=== PATIENT | male | born 1970 | race American Indian/Alaskan Native ===

== ENCOUNTER 2016-06-07 17:45 | Inpatient (IN) | payer OTHER ==
[2016-06-07 20:09] LABS: BASO % 0.4 % (0.0-2.0); EOS # 0.1 K/uL (0.0-0.7); EOS % 0.8 % (0.0-4.0); HEMATOCRIT 43.8 % (35.0-51.0); LYMPH # 2.4 K/uL (1.0-4.3); MEAN CORPUSCULAR HEMOGLOBIN 26.6 pg (27.0-31.0); MEAN CORPUSCULAR HGB CONC 32.9 g/dL (33.0-37.0); MEAN PLATELET VOLUME 7.2 fL (7.2-11.7); MONO # 1.1 K/uL (0.0-0.8); MONO % 8.9 % (0.0-10.0); RED CELL DISTRIBUTION WIDTH 14.2 % (11.5-14.5); WHITE BLOOD COUNT 12.3 K/uL (4.8-10.8)
[2016-06-07 20:16] LABS: RBC URINE 2 /hpf (0-3); URINE BACTERIA RARE (<OCC); URINE BILIRUBIN 1+ (NEGATIVE); URINE BLOOD NEGATIVE (NEGATIVE); URINE COLOR Amber (YELLOW); URINE GLUCOSE (UA) NORMAL (Normal); URINE KETONE TRACE mg/dL (NEGATIVE); URINE LEUKOCYTE ESTERASE NEG Leu/uL (Negative); URINE PROTEIN 1+ mg/dL (NEGATIVE); WBC URINE 4 /hpf (0-5)
[2016-06-07 20:20] LABS: CHLORIDE 92 mmol/L (98-107)
[2016-06-07 20:21] LABS: POTASSIUM 4.2 mmol/L (3.6-5.2); SODIUM 136 mmol/L (132-148)
[2016-06-07 20:23] LABS: GFR AFRICAN-AMERICAN > 60
[2016-06-07 20:24] LABS: ALB/GLOB RATIO 1.3 (1.0-2.1); ALKALINE PHOSPHATASE 72 U/L (38-126); ALT/SGPT 21 U/L (21-72); AST/SGOT 34 U/L (17-59); BILIRUBIN,TOTAL 0.9 mg/dL (0.2-1.3); BLOOD UREA NITROGEN 10 mg/dL (9-20); CALCIUM 9.3 mg/dl (8.6-10.4); CARBON DIOXIDE 25 mmol/L (22-30); GLUCOSE,RANDOM 81 mg/dL (75-110); TOTAL PROTEIN 8.1 g/dL (6.3-8.3)
[2016-06-07 20:25] LABS: ALCOHOL SERUM < 10 mg/dl (0-10)
--- NOTE | 2016-06-07 20:37 | C.PDOC ---
History Of Present Illness 46 y/o male presents to the ED requesting alcohol detox. 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 Pt has no complaints at this time. Time Seen by Provider: 06/07/16 19:50 Chief Complaint (Nursing): Substance Abuse History Per: Patient History/Exam Limitations: no limitations Suicide/Self Injury Attempted (Context): None Modifying Factor(s): Alcohol Severity: Mild Involuntary Hold By: None Recent travel outside of the [place]: No Past Medical History Reviewed: Historical Data, Nursing Documentation, Vital Signs Vital Signs: Last Vital Signs Temp 98.7 F 06/07/16 18:08 Pulse 99 H 06/07/16 18:08 Resp 18 06/07/16 18:08 BP 122/72 06/07/16 18:08 Pulse Ox 99 06/07/16 20:37 - Medical History PMH: Back Problems Family History: States: Unknown Family Hx - Social History Hx Tobacco Use: No Hx Alcohol Use: No Hx Substance Use: Yes (heroin) - Immunization History Hx Tetanus Toxoid Vaccination: No Hx Influenza Vaccination: No Hx Pneumococcal Vaccination: No Review Of Systems Except As Marked, All Systems Reviewed And Found Negative. Physical Exam - Physical Exam Appears: Non-toxic, No Acute Distress Skin: Warm, Dry Head: Atraumatic, Normacephalic Cardiovascular: Rhythm Regular, No Murmur Respiratory: Normal Breath Sounds, No Rales, No Rhonchi, No Wheezing Gastrointestinal/Abdominal: Soft, No Tenderness Extremity: No Pedal Edema Extremity: Bilateral: Atraumatic Neurological/Psych: Oriented x3 ED Course And Treatment - Laboratory Results Result Diagrams: 06/07/16 20:05 06/07/16 20:05 Lab Interpretation: Abnormal (+ opiates, neg etoh) O2 Sat by Pulse Oximetry: 99 (on room air) Pulse Ox Interpretation: Normal - Physician Consult Information Outcome Of Conversation: d/w Crisis @ 1950 and 2100, ok to Detox Medical Decision Making Medical Decision Making: Plan: UA, labs --> medically clear for detox Disposition Doctor Will See Patient In The: Hospital Counseled Patient/Family Regarding: Studies Performed, Diagnosis - Disposition Disposition: HOSPITALIZED Disposition Time: 21:13 Condition: GOOD - Clinical Impression Clinical Impression: Opiate abuse, continuous - Scribe Statement The provider has reviewed the documentation as recorded by the Frederick Harrison Provider Attestation: All medical record entries made by the Scribe were at my direction and personally dictated by me. I have reviewed the chart and agree that the record accurately reflects my personal performance of the history, physical exam, medical decision making, and the department course for this patient. I have also personally directed, reviewed, and agree with the discharge instructions and disposition.
[2016-06-07] MEDS ORDERED: Buprenorphine Hydrochloride 2 mg SL ONE ×2 (22:29→23:45)
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
[2016-06-08 08:02] LABS: BASO % 0.5 % (0.0-2.0); EOS % 0.3 % (0.0-4.0); HEMATOCRIT 43.2 % (35.0-51.0); LYMPH # 1.3 K/uL (1.0-4.3); LYMPH % 13.5 % (20.0-40.0); MEAN CELL VOLUME 80.7 fL (80.0-94.0); MEAN CORPUSCULAR HEMOGLOBIN 26.8 pg (27.0-31.0); MEAN CORPUSCULAR HGB CONC 33.2 g/dL (33.0-37.0); MEAN PLATELET VOLUME 7.4 fL (7.2-11.7); MONO # 0.7 K/uL (0.0-0.8); MONO % 6.9 % (0.0-10.0); RED CELL DISTRIBUTION WIDTH 14.3 % (11.5-14.5); WHITE BLOOD COUNT 9.7 K/uL (4.8-10.8)
[2016-06-08 08:15] LABS: CHLORIDE 94 mmol/L (98-107)
[2016-06-08 08:16] LABS: POTASSIUM 4.6 mmol/L (3.6-5.2); SODIUM 135 mmol/L (132-148)
[2016-06-08 08:18] LABS: ALB/GLOB RATIO 1.3 (1.0-2.1); ALKALINE PHOSPHATASE 70 U/L (38-126); AST/SGOT 41 U/L (17-59); BILIRUBIN,TOTAL 0.6 mg/dL (0.2-1.3); BLOOD UREA NITROGEN 8 mg/dL (9-20); CARBON DIOXIDE 26 mmol/L (22-30); GFR AFRICAN-AMERICAN > 60; GLUCOSE,RANDOM 105 mg/dL (75-110); PHOSPHOROUS 3.4 mg/dL (2.5-4.5); TOTAL PROTEIN 7.5 g/dL (6.3-8.3)
[2016-06-08 08:19] LABS: ALT/SGPT 21 U/L (21-72); CALCIUM 9.3 mg/dl (8.6-10.4); MAGNESIUM 2.2 mg/dL (1.6-2.3)
--- NOTE | 2016-06-08 09:56 | CP.PCM.PN ---
Addendum entered and electronically signed by Jennifer Henry DO 06/08/16 16:14: Ordered prune juice and Dulcolax (once) for fecal retention. Addendum entered and electronically signed by Jennifer Henry DO 06/08/16 15:19: Abdominal x-ray w/findings of fecal retention. Original Note: <Jennifer Henry - Last Filed: 06/08/16 12:47> Subjective - Date & Time of Evaluation Date of Evaluation: 06/08/16 Time of Evaluation: 06:45 - Subjective Subjective: Internal medicine progress note for Hospitalist service- Jennifer Henry, PGY-1 Pt S & E at bedside. Pt reports continued intermittent abdominal pain in left upper and lower quadrants. Some nausea overnight, did not sleep, poor appetite. Denies emesis fever, SOB, CP, LE pain. Objective - Vital Signs/Intake and Output Vital Signs (last 24 hours): Temp Pulse Resp BP Pulse Ox 98 F 79 18 115/62 95 06/08/16 06:38 06/08/16 06:38 06/08/16 06:38 06/08/16 06:38 06/08/16 06:38 - Medications Medications: Current Medications Buprenorphine HCl (Subutex) 8 mg SL .TAPER FABIAN PRN Reason: Taper Stop: 06/12/16 09:59 Clonidine HCl (Catapres) 0.1 mg PO Q8 PRN PRN Reason: opiate withdrawal Dicyclomine HCl (Bentyl) 10 mg PO Q6 PRN PRN Reason: Muscle spasm Influenza Virus Vaccine (Afluria) 45 mcg IM .ONCE ONE Stop: 06/09/16 09:01 Ondansetron HCl (Zofran Inj) 4 mg IM Q6 PRN PRN Reason: Nausea/Vomiting Last Admin: 06/08/16 02:59 Dose: 4 mg Pantoprazole Sodium (Protonix Ec Tab) 40 mg PO DAILY FABIAN Pneumococcal Polyvalent Vaccine (Pneumovax 23 Vaccine) 0.5 ml IM .ONCE ONE Stop: 06/09/16 22:35 Trazodone HCl (Desyrel) 50 mg PO HS PRN PRN Reason: Insomnia - Labs Labs: 06/08/16 07:48 06/08/16 07:48 - Constitutional Appears: Non-toxic, No Acute Distress - Head Exam Head Exam: ATRAUMATIC, NORMAL INSPECTION, NORMOCEPHALIC - Eye Exam Eye Exam: EOMI, Normal appearance, PERRL Pupil Exam: NORMAL ACCOMODATION, PERRL - ENT Exam ENT Exam: Mucous Membranes Moist, Normal Exam - Neck Exam Neck Exam: Full ROM, Normal Inspection - Respiratory Exam Respiratory Exam: Clear to Ausculation Bilateral, NORMAL BREATHING PATTERN. absent: Rales, Rhonchi, Wheezes, Respiratory Distress - Cardiovascular Exam Cardiovascular Exam: REGULAR RHYTHM, +S1, +S2 - GI/Abdominal Exam GI & Abdominal Exam: Soft, Tenderness (left upper and lower quadrants), Hyperactive Bowel Sounds. absent: Distended, Firm, Guarding, Rigid, Normal Bowel Sounds - Extremities Exam Extremities Exam: Full ROM, Normal Inspection. absent: Pedal Edema, Tenderness - Back Exam Back Exam: Full ROM, NORMAL INSPECTION - Neurological Exam Neurological Exam: Alert, Awake, CN II-XII Intact, Oriented x3 - Psychiatric Exam Psychiatric exam: Normal Affect, Normal Mood - Skin Skin Exam: Dry, Intact, Normal Color, Warm Assessment and Plan - Assessment and Plan (Free Text) Assessment: (1) Vomiting Assessment and Plan: Emesis since taking Subutex. Consider medication reaction. Possible withdrawal component. FU stool studies. Zofran 4 mg IM Q6H PRN nausea. Electrolytes WNL Monitor Lipase 72 Clear liquid diet. Advance as tolerated. FU abdominal x-ray (2) Diarrhea Assessment and Plan: FU stool studies (3) Opiate abuse, continuous Assessment and Plan: Management as per detox team. Catapres 0,1 mg PO Q8H PRN Bentyl 10 mg PO Q6H PRN Trazodone 50 mg PO HS PRN Dispo: Cont to monitor FU test results detox mgmt as per psych DW attending <Astrid Glover V - Last Filed: 06/09/16 19:21> Objective - Vital Signs/Intake and Output Vital Signs (last 24 hours): Temp Pulse Resp BP Pulse Ox 98.3 F 82 18 113/62 96 06/09/16 15:46 06/09/16 15:46 06/09/16 15:46 06/09/16 15:46 06/09/16 15:46 - Medications Medications: Current Medications Buprenorphine HCl (Subutex) 4 mg SL DAILY FABIAN PRN Reason: Taper Stop: 06/11/16 09:59 Last Admin: 06/09/16 09:39 Dose: 4 mg Clonidine HCl (Catapres) 0.1 mg PO Q8 PRN PRN Reason: opiate withdrawal Last Admin: 06/09/16 04:25 Dose: 0.1 mg Cyproheptadine HCl (Periactin) 4 mg PO HS [facility] Dicyclomine HCl (Bentyl) 10 mg PO Q6 PRN PRN Reason: Muscle spasm Gabapentin (Neurontin) 300 mg PO BID [facility] Last Admin: 06/09/16 19:00 Dose: 300 mg Hydroxyzine HCl (Atarax) 25 mg PO Q8 PRN PRN Reason: Anxiety Last Admin: 06/09/16 09:39 Dose: 25 mg Magnesium Hydroxide (Milk Of Magnesia) 30 ml PO ONCE ONE Stop: 06/09/16 19:13 Multivitamins (Hexavitamin) 1 tab PO DAILY [facility] Last Admin: 06/09/16 09:39 Dose: 1 tab Ondansetron HCl (Zofran Inj) 4 mg IM Q6 PRN PRN Reason: Nausea/Vomiting Last Admin: 06/08/16 02:59 Dose: 4 mg Pantoprazole Sodium (Protonix Ec Tab) 40 mg PO DAILY [facility] Last Admin: 06/09/16 09:39 Dose: 40 mg Pneumococcal Polyvalent Vaccine (Pneumovax 23 Vaccine) 0.5 ml IM .ONCE ONE Stop: 06/09/16 22:35 Polyethylene Glycol (Miralax) 17 gm PO DAILY [facility] Last Admin: 06/09/16 12:57 Dose: 17 gm Trazodone HCl (Desyrel) 100 mg PO HS PRN PRN Reason: Insomnia - Labs Labs: 06/09/16 08:06 06/09/16 08:06 Attending/Attestation - Attestation I have personally seen and examined this patient.: Yes I have fully participated in the care of the patient.: Yes I have reviewed all pertinent clinical information, including history, physical exam and plan: Yes Notes (Text): This is late computer entry for 06/08/16. Patient seen, examined and case discussed with day-time resident. Patient reported associated vomitting and nausea early in the morning. Patient started on Zofran PRN to help ease nausea. Patient started on clear liquids, advised to take sips. Patient reported abdominal pain associated with nausea/vomitting/diarrhea; ordered for abdominal xray which reveal fecal retention; ordered for Ducloax one time and awaiting B and prune juice to help promote gut motility Vomitting likely medication related or part of heroin withdrawl Lipase ordered and was low Detox per psych Assessment/Plan (1) Vomiting Patient advised for clear liquid diet. Patient advised to tap sips. Patient advised there is Zofran 4mg IM Q 6hour PRN nausea Possible secondary to medication related Electrolytes WNL Monitor (2) Abdominal Pain Patient ordered for Abdominal xray (06/08/16): fecal retention Lipase within normal limits likely opiate related induced constipation Given dose of Ducolax, monitor for BM Patient is currently on liquid diet and advised prune juice (3) Opiate abuse, continuous Management as per detox team including: Subtex taper Catapres 0,1 mg PO Q8H PRN Bentyl 10 mg PO Q6H PRN Trazodone 50 mg PO HS PRN (4) Constipation likely opiate related Abdominal xray (06/08/16): fecal retention Given dose of Ducolax; monitor for BM (5) Diarrhea one time ordered for stool studies possibly heroin withdrawal Abdominal xray (06/08/16): fecal retention Given dose of Ducolax; monitor for BM
[2016-06-08] MEDS: Buprenorphine Hydrochloride 2 mg SL SCH ×2 (12:42→13:44)
[2016-06-08] MEDS: Pantoprazole 40 mg EC Tab PO SCH (12:42)
--- NOTE | 2016-06-08 13:30 | PCM.PSYCH ---
Initial Psychiatric Evaluation - Initial Psychiatric Evaluation Type of Admission: Voluntary Legal Status: Capacity Chief Complaint (in patient's own words): "I am not well. I threw up, ask them" History of Present Illness and Precipitating Events: The patient is seen, chart reviewed and case discussed. 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 The patient admits to using up to 40 bags of intranasal harrowing. He denies using painkillers, methadone or Suboxone. He had been to detox 4 or 5 times and rehabilitation 5 times and he sometimes goes to . He admits to using cocaine sometimes and occasionally marijuana. He denies other drugs. Last night he was started on Subutex and he had some drawing up because of [place] he was wary of taking Subutex again but nevertheless he took some. Past psych history: Denies Family psych history: Denies Medical history: Denies Current Medications: Active Medications Generic Name Dose Route Start Last Admin Trade Name Freq PRN Reason Stop Dose Admin Buprenorphine HCl 8 mg 06/08/16 10:00 06/08/16 12:42 Subutex SL 06/12/16 09:59 8 mg DAILY FABIAN Administration Taper Clonidine HCl 0.1 mg 06/07/16 21:48 Catapres PO Q8 PRN opiate withdrawal Dicyclomine HCl 10 mg 06/08/16 03:17 Bentyl PO Q6 PRN Muscle spasm Influenza Virus Vaccine 45 mcg 06/09/16 09:00 Afluria IM 06/09/16 09:01 .ONCE ONE Ondansetron HCl 4 mg 06/08/16 02:44 06/08/16 02:59 Zofran Inj IM 4 mg Q6 PRN Administration Nausea/Vomiting Pantoprazole Sodium 40 mg 06/08/16 10:00 06/08/16 12:42 Protonix Ec Tab PO 40 mg DAILY FABIAN Administration Pneumococcal Polyvalent Vaccine 0.5 ml 06/09/16 22:34 Pneumovax 23 Vaccine IM 06/09/16 22:35 .ONCE ONE Trazodone HCl 50 mg 06/07/16 21:48 Desyrel PO HS PRN Insomnia Past Psychiatric History - Past Psychiatric History Previous Treatment History: None Pertinent Medical Hx (Current Medical&Sleep Prob, Allergies): Allergies Allergy/AdvReac Type Severity Reaction Status Date / Time No Known Allergies Allergy Verified 06/07/16 18:10 No Known Home Med 06/07/16 Review of Systems - Neurological Neurological: UNREMARKABLE - Psychiatric Psychiatric: Abnormal Sleep Pattern, Anxiety, Irritability. absent: Depression , Hallucinations, Homicidal Ideation, Suicidal Ideation Mental Status Examination - Personal Presentation Personal Presentation: Looks older than stated age - Affect Affect: Constricted - Motor Activity Motor Activity: Calm - Reliability in Providing Information Reliability in Providing Information: Fair - Speech Speech: Organized - Mood Mood: Anxious - Formal Thought Process Formal Thought Process: No Impairment - Cognitive Functions Orientation: Person, Place, Situation, Time Abstract Thinking: [place] Estimate of Intelligence: Below average Judgement: Intact, as evidence by: Insight regarding need for hospitalization Memory: Recent intact, as evidence by: Ability to recall events of the day, Remote intact, as evidenced by: Abilit to recall sig. life events - Risk Risk: Diminished functioning - Strength & Assets Inventory Strength & Assets Inventory: Cooperative - Limitations Limitations: Living alone DSM 5 DX - DSM 5 DSM 5 Diagnosis: Opioid withdrawal Opioid use d/o - sever Cocaine use d/o - severe - Recommended/Plan of Treatment Treatment Recommendations and Plan of Treatment: Opioids: -Continue Subutex detox -As needed medications -Support and psychoeducation -Attend groups and activities -AZ and CBT for abstinence -Refer to rehabilitation -Consider MAT Cocaine: -AZ for abstinence -Gabapentin for withdrawal anxiety 32 minutes Projected ELOS: 4 days Prognosis: good with treatment - Smoking Cessation Smoking Cessation Initiated: Yes
--- NOTE | 2016-06-08 14:33 | RAD ---
Abdomen two views History: Abdominal pain. Comparison: None available. Findings: Fecal retention in the colon. No evidence of gross bowel dilatation or obstruction. Impression: Fecal retention in the colon.
[2016-06-08] MEDS ORDERED: Bisacodyl 5mg EC Tab PO ONE (16:14)
[2016-06-08] MEDS ORDERED: Buprenorphine Hydrochloride 2 mg SL ONE (17:29)
[2016-06-09 08:13] LABS: BASO % 0.5 % (0.0-2.0); EOS % 0.5 % (0.0-4.0); HEMATOCRIT 46.5 % (35.0-51.0); LYMPH # 1.7 K/uL (1.0-4.3); LYMPH % 21.6 % (20.0-40.0); MEAN CELL VOLUME 81.2 fL (80.0-94.0); MEAN CORPUSCULAR HEMOGLOBIN 26.7 pg (27.0-31.0); MEAN CORPUSCULAR HGB CONC 32.9 g/dL (33.0-37.0); MEAN PLATELET VOLUME 7.4 fL (7.2-11.7); MONO # 0.7 K/uL (0.0-0.8); MONO % 8.6 % (0.0-10.0); NRBC % 0.1 % (0.0-2.0); RED CELL DISTRIBUTION WIDTH 14.6 % (11.5-14.5); WHITE BLOOD COUNT 7.7 K/uL (4.8-10.8)
[2016-06-09 08:28] LABS: CHLORIDE 95 mmol/L (98-107); SODIUM 136 mmol/L (132-148)
[2016-06-09 08:29] LABS: POTASSIUM 4.8 mmol/L (3.6-5.2)
[2016-06-09 08:30] LABS: GFR AFRICAN-AMERICAN > 60
[2016-06-09 08:31] LABS: ALB/GLOB RATIO 1.3 (1.0-2.1); ALKALINE PHOSPHATASE 69 U/L (38-126); ALT/SGPT 24 U/L (21-72); AST/SGOT 39 U/L (17-59); BILIRUBIN,TOTAL 0.9 mg/dL (0.2-1.3); BLOOD UREA NITROGEN 7 mg/dL (9-20); CALCIUM 9.6 mg/dl (8.6-10.4); CARBON DIOXIDE 25 mmol/L (22-30); GLUCOSE,RANDOM 101 mg/dL (75-110); PHOSPHOROUS 3.3 mg/dL (2.5-4.5); TOTAL PROTEIN 8.2 g/dL (6.3-8.3)
[2016-06-09 08:32] LABS: MAGNESIUM 2.4 mg/dL (1.6-2.3)
[2016-06-09] MEDS ORDERED: Influenza Virus Vaccine 45 mcg/0.5 ml Syr IM ONE (09:00)
[2016-06-09] MEDS: Buprenorphine Hydrochloride 2 mg SL SCH (09:39)
[2016-06-09] MEDS: Pantoprazole 40 mg EC Tab PO SCH (09:39)
[2016-06-09] MEDS: Multiple Vitamins Tab PO SCH (09:39)
--- NOTE | 2016-06-09 12:30 | PCM.PYCHPN ---
Psychiatric Progress Note - Psychiatric Progress Note Patient seen today, length of contact: 16 min Patient Chief Complaint: "I am not ready" Problems Identified/Issues Discussed: The pt is seen, chart reviewed, case discussed with staff. The pt is compliant with medications finally and reports no side-effects. Symptoms are improving but needs more time to stabilize. After care discussed, support and psychoeducation given. he has insomnia and "very poor" appetite. Periactine added. Medication Change: Yes (periactin) Medical Record Reviewed: Yes Mental Status Examination - Cognitive Function Orientation: Person, Place, Situation, Time Memory: Intact Attention: Poor Concentration: Poor Association: WNL Fund of Knowledge: WNL - Mood Mood: Anxious - Affect Affect: Constricted - Speech Speech: Appropriate - Formal Thought Process Formal Thought Process: No Impairment - Suicidal Ideation Suicidal Ideation: No - Homicidal Ideation Homicidal Ideation: No Goal/Treatment Plan - Goal/Treatment Plan Need for Continued Stay: Discharge may exacerbated symptoms, Severe functional impairment Progress Toward Problem(s) and Goals/Treatment Plan: Opioids: -Continue Subutex detox -As needed medications -Support and psychoeducation -Attend groups and activities -TN and CBT for abstinence -Refer to rehabilitation -Consider MAT Cocaine: -TN for abstinence -Gabapentin for withdrawal anxiety Estimated Date of D/C: 06/11/16
[2016-06-09] MEDS: POLYETHYLENE GLYCOL 3350 17 GM/Dose PACKET PO SCH (12:57)
--- NOTE | 2016-06-09 12:57 | CP.PCM.PN ---
<Jennifer Henry - Last Filed: 06/09/16 12:54> Subjective - Date & Time of Evaluation Date of Evaluation: 06/09/16 Time of Evaluation: 06:50 - Subjective Subjective: Internal medicine progress note for Hospitalist service- Jennifer Henry, PGY-1 Pt S & E at bedside. Pt reports much improvement in nausea, is tolerating a liquid diet, abdominal pain much improved. Last real meal was 1 week ago, admits to flatus, denies emesis, F/C, SOB, CP. Sleeping ok, ambulating, has not had BM yet. Objective - Vital Signs/Intake and Output Vital Signs (last 24 hours): Temp Pulse Resp BP Pulse Ox 97.5 F L 74 18 109/73 100 06/09/16 09:00 06/09/16 09:00 06/09/16 09:00 06/09/16 09:00 06/09/16 09:00 - Medications Medications: Current Medications Buprenorphine HCl (Subutex) 4 mg SL DAILY [facility] PRN Reason: Taper Stop: 06/11/16 09:59 Last Admin: 06/09/16 09:39 Dose: 4 mg Clonidine HCl (Catapres) 0.1 mg PO Q8 PRN PRN Reason: opiate withdrawal Last Admin: 06/09/16 04:25 Dose: 0.1 mg Cyproheptadine HCl (Periactin) 4 mg PO HS [facility] Dicyclomine HCl (Bentyl) 10 mg PO Q6 PRN PRN Reason: Muscle spasm Gabapentin (Neurontin) 300 mg PO BID [facility] Hydroxyzine HCl (Atarax) 25 mg PO Q8 PRN PRN Reason: Anxiety Last Admin: 06/09/16 09:39 Dose: 25 mg Multivitamins (Hexavitamin) 1 tab PO DAILY [facility] Last Admin: 06/09/16 09:39 Dose: 1 tab Ondansetron HCl (Zofran Inj) 4 mg IM Q6 PRN PRN Reason: Nausea/Vomiting Last Admin: 06/08/16 02:59 Dose: 4 mg Pantoprazole Sodium (Protonix Ec Tab) 40 mg PO DAILY [facility] Last Admin: 06/09/16 09:39 Dose: 40 mg Pneumococcal Polyvalent Vaccine (Pneumovax 23 Vaccine) 0.5 ml IM .ONCE ONE Stop: 06/09/16 22:35 Polyethylene Glycol (Miralax) 17 gm PO DAILY [facility] Trazodone HCl (Desyrel) 100 mg PO HS PRN PRN Reason: Insomnia - Labs Labs: 06/09/16 08:06 06/09/16 08:06 - Constitutional Appears: Non-toxic, No Acute Distress - Head Exam Head Exam: ATRAUMATIC, NORMAL INSPECTION, NORMOCEPHALIC - Eye Exam Eye Exam: EOMI, Normal appearance, PERRL Pupil Exam: NORMAL ACCOMODATION, PERRL - ENT Exam ENT Exam: Mucous Membranes Moist, Normal Exam - Neck Exam Neck Exam: Full ROM, Normal Inspection - Respiratory Exam Respiratory Exam: Clear to Ausculation Bilateral, NORMAL BREATHING PATTERN. absent: Rales, Rhonchi, Wheezes, Stridor - Cardiovascular Exam Cardiovascular Exam: REGULAR RHYTHM, +S1, +S2 - GI/Abdominal Exam GI & Abdominal Exam: Soft, Tenderness (minimal, diffuse), Normal Bowel Sounds. absent: Distended, Firm, Guarding, Rigid - Extremities Exam Extremities Exam: Full ROM, Normal Inspection. absent: Pedal Edema, Tenderness - Back Exam Back Exam: Full ROM, NORMAL INSPECTION - Neurological Exam Neurological Exam: Alert, Awake, CN II-XII Intact, Oriented x3 - Psychiatric Exam Psychiatric exam: Normal Affect, Normal Mood - Skin Skin Exam: Dry, Intact, Normal Color, Warm Assessment and Plan - Assessment and Plan (Free Text) Assessment: (1) Vomiting- resolving Emesis since taking Subutex. Consider medication reaction. Possible withdrawal component. Stool studies pending BM Zofran 4 mg IM Q6H PRN nausea. Electrolytes WNL Monitor Lipase 72 Advanced to regular diet Abdominal x-ray w/findings of fecal retention Started Miralax daily Instructions to drink prune juice Awaiting BM (2) Diarrhea No BM as of yet FU Stool studies- pending (3) Opiate abuse, continuous Management as per detox team. Catapres 0,1 mg PO Q8H PRN Bentyl 10 mg PO Q6H PRN Trazodone 50 mg PO HS PRN Dispo: Cont to monitor FU test results detox mgmt as per psych Symptoms improving Awaiting BM DW attending <Astrid Glover V - Last Filed: 06/09/16 19:12> Objective - Vital Signs/Intake and Output Vital Signs (last 24 hours): Temp Pulse Resp BP Pulse Ox 98.3 F 82 18 113/62 96 06/09/16 15:46 06/09/16 15:46 06/09/16 15:46 06/09/16 15:46 06/09/16 15:46 - Medications Medications: Current Medications Buprenorphine HCl (Subutex) 4 mg SL DAILY [facility] PRN Reason: Taper Stop: 06/11/16 09:59 Last Admin: 06/09/16 09:39 Dose: 4 mg Clonidine HCl (Catapres) 0.1 mg PO Q8 PRN PRN Reason: opiate withdrawal Last Admin: 06/09/16 04:25 Dose: 0.1 mg Cyproheptadine HCl (Periactin) 4 mg PO HS [facility] Dicyclomine HCl (Bentyl) 10 mg PO Q6 PRN PRN Reason: Muscle spasm Gabapentin (Neurontin) 300 mg PO BID [facility] Hydroxyzine HCl (Atarax) 25 mg PO Q8 PRN PRN Reason: Anxiety Last Admin: 06/09/16 09:39 Dose: 25 mg Multivitamins (Hexavitamin) 1 tab PO DAILY [facility] Last Admin: 06/09/16 09:39 Dose: 1 tab Ondansetron HCl (Zofran Inj) 4 mg IM Q6 PRN PRN Reason: Nausea/Vomiting Last Admin: 06/08/16 02:59 Dose: 4 mg Pantoprazole Sodium (Protonix Ec Tab) 40 mg PO DAILY [facility] Last Admin: 06/09/16 09:39 Dose: 40 mg Pneumococcal Polyvalent Vaccine (Pneumovax 23 Vaccine) 0.5 ml IM .ONCE ONE Stop: 06/09/16 22:35 Polyethylene Glycol (Miralax) 17 gm PO DAILY [facility] Last Admin: 06/09/16 12:57 Dose: 17 gm Trazodone HCl (Desyrel) 100 mg PO HS PRN PRN Reason: Insomnia - Labs Labs: 06/09/16 08:06 06/09/16 08:06 Attending/Attestation - Attestation I have personally seen and examined this patient.: Yes I have fully participated in the care of the patient.: Yes I have reviewed all pertinent clinical information, including history, physical exam and plan: Yes Notes (Text): Patient seen, examined, and case discussed with day-time resident. Patient seen this morning. Patient is having flatus but has not had bowel movement. Patient's abdominal xray showing fecal retention. Patient started on Miralax today. Awaiting bowel movement. Discussed with nursing, patient has yet to have a bowel movement. Awaiting bowel movement. Patient's nausea and vomitting controlled. Patient denies further episodes. Symptoms likely related to heroin withdrawal. Will likely sign off tomorrow if patient has a bowel movement; likely opiate induced constipation (1) Vomiting Resolved No further episodes of vomitting Subtex taper Zofran 4 mg IM Q6H PRN nausea. Electrolytes WNL Monitor Lipase 72 Advanced to regular diet given patient has flatus (2) Abdominal Pain No BM as of yet; patient is constipated Abdominal xray (06/08/16): fecal retention likely opiate releated (3) Opiate abuse, continuous Management as per detox team including: Subtex taper Catapres 0,1 mg PO Q8H PRN Bentyl 10 mg PO Q6H PRN Trazodone 50 mg PO HS PRN (4) Constipation likely opiate related Abdominal xray (06/08/16): fecal retention Miralax PO daily Awaiting BM Stool studies no needed given patient is constipated
[2016-06-09] MEDS ORDERED: Magnesium Hydroxide Susp 30 ml UD PO ONE (19:12)
[2016-06-09] MEDS ORDERED: Pneumococcal 23-Valent Vaccine IM ONE (22:34)
[2016-06-10] MEDS: Multiple Vitamins Tab PO SCH (09:31)
[2016-06-10] MEDS: POLYETHYLENE GLYCOL 3350 17 GM/Dose PACKET PO SCH (09:31)
[2016-06-10] MEDS: Pantoprazole 40 mg EC Tab PO SCH (09:32)
[2016-06-10] MEDS: Buprenorphine Hydrochloride 2 mg SL SCH (09:32)
[2016-06-10] MEDS ORDERED: Magnesium Hydroxide Susp 30 ml UD PO ONE (13:38)
--- NOTE | 2016-06-10 13:41 | CP.PCM.PN ---
Addendum entered and electronically signed by Jennifer Henry DO 06/10/16 13:44: Per nursing- pt reported BM- instructed nursing to continue daily prune juice for constipation. Pt medically stable. Thank you for this consult. Please re-consult as needed. Original Note: <Jennifer Henry - Last Filed: 06/10/16 13:42> Subjective - Date & Time of Evaluation Date of Evaluation: 06/10/16 Time of Evaluation: 06:45 - Subjective Subjective: Internal medicine progress note for Hospitalist service- Jennifer Henry, PGY-1 Pt S & E at bedside. Pt reports that his nausea, abdominal pain has resolved, still has not had a BM - but feels like he is going to do so soon. Tolerating diet. Slept ok. Denies N/V/F/C, SOB, CP, abdominal pain. Ambulating. Objective - Vital Signs/Intake and Output Vital Signs (last 24 hours): Temp Pulse Resp BP Pulse Ox 97.8 F 80 18 112/66 99 06/10/16 09:10 06/10/16 09:10 06/10/16 09:10 06/10/16 09:10 06/10/16 09:10 - Medications Medications: Current Medications Buprenorphine HCl (Subutex) 2 mg SL DAILY [facility] PRN Reason: Taper Stop: 06/11/16 09:59 Last Admin: 06/10/16 09:32 Dose: 2 mg Buprenorphine HCl (Subutex) 2 mg SL ONCE ONE Stop: 06/11/16 09:01 Clonidine HCl (Catapres) 0.1 mg PO Q8 PRN PRN Reason: opiate withdrawal Last Admin: 06/09/16 04:25 Dose: 0.1 mg Cyproheptadine HCl (Periactin) 4 mg PO HS [facility] Last Admin: 06/09/16 21:00 Dose: 4 mg Dicyclomine HCl (Bentyl) 10 mg PO Q6 PRN PRN Reason: Muscle spasm Gabapentin (Neurontin) 300 mg PO BID [facility] Last Admin: 06/10/16 09:32 Dose: 300 mg Hydroxyzine HCl (Atarax) 25 mg PO Q8 PRN PRN Reason: Anxiety Last Admin: 06/09/16 09:39 Dose: 25 mg Multivitamins (Hexavitamin) 1 tab PO DAILY [facility] Last Admin: 06/10/16 09:31 Dose: 1 tab Ondansetron HCl (Zofran Inj) 4 mg IM Q6 PRN PRN Reason: Nausea/Vomiting Last Admin: 06/08/16 02:59 Dose: 4 mg Pantoprazole Sodium (Protonix Ec Tab) 40 mg PO DAILY [facility] Last Admin: 06/10/16 09:32 Dose: 40 mg Polyethylene Glycol (Miralax) 17 gm PO DAILY [facility] Last Admin: 06/10/16 09:31 Dose: 17 gm Trazodone HCl (Desyrel) 100 mg PO HS PRN PRN Reason: Insomnia Last Admin: 06/09/16 20:57 Dose: 100 mg - Labs Labs: 06/09/16 08:06 06/09/16 08:06 - Constitutional Appears: Non-toxic, No Acute Distress - Head Exam Head Exam: ATRAUMATIC, NORMAL INSPECTION, NORMOCEPHALIC - Eye Exam Eye Exam: EOMI, Normal appearance, PERRL Pupil Exam: NORMAL ACCOMODATION, PERRL - ENT Exam ENT Exam: Mucous Membranes Moist, Normal Exam - Neck Exam Neck Exam: Full ROM, Normal Inspection - Respiratory Exam Respiratory Exam: Clear to Ausculation Bilateral, NORMAL BREATHING PATTERN. absent: Rales, Rhonchi, Wheezes - Cardiovascular Exam Cardiovascular Exam: REGULAR RHYTHM, +S1, +S2 - GI/Abdominal Exam GI & Abdominal Exam: Soft, Normal Bowel Sounds. absent: Distended, Firm, Guarding, Rigid, Tenderness - Extremities Exam Extremities Exam: Full ROM, Normal Inspection. absent: Pedal Edema, Tenderness - Back Exam Back Exam: Full ROM, NORMAL INSPECTION - Neurological Exam Neurological Exam: Alert, Awake, CN II-XII Intact, Oriented x3 - Psychiatric Exam Psychiatric exam: Normal Affect, Normal Mood - Skin Skin Exam: Dry, Intact, Normal Color, Warm Assessment and Plan - Assessment and Plan (Free Text) Assessment: (1) Vomiting- resolved Emesis since taking Subutex. Consider medication reaction. Possible withdrawal component. Stool studies - cancelled Zofran 4 mg IM Q6H PRN nausea. Electrolytes WNL Monitor Lipase 72 Advanced to regular diet Abdominal x-ray w/findings of fecal retention Cont Miralax daily Instructions to drink prune juice daily, increase fiber in diet Awaiting BM (2) Diarrhea/Constipation No BM as of yet FU Stool studies- cancelled (3) Opiate abuse, continuous Management as per detox team. Catapres 0,1 mg PO Q8H PRN Bentyl 10 mg PO Q6H PRN Trazodone 50 mg PO HS PRN Dispo: Cont to monitor FU test results detox mgmt as per psych Symptoms improving Awaiting BM DW attending <Astrid Glover V - Last Filed: 06/11/16 00:37> Objective - Vital Signs/Intake and Output Vital Signs (last 24 hours): Temp Pulse Resp BP Pulse Ox 97.7 F 79 18 109/54 L 99 06/10/16 18:57 06/10/16 18:57 06/10/16 18:57 06/10/16 18:57 06/10/16 18:57 - Medications Medications: Current Medications Buprenorphine HCl (Subutex) 2 mg SL DAILY [facility] PRN Reason: Taper Stop: 06/11/16 09:59 Last Admin: 06/10/16 09:32 Dose: 2 mg Buprenorphine HCl (Subutex) 2 mg SL ONCE ONE Stop: 06/11/16 09:01 Clonidine HCl (Catapres) 0.1 mg PO Q8 PRN PRN Reason: opiate withdrawal Last Admin: 06/09/16 04:25 Dose: 0.1 mg Cyproheptadine HCl (Periactin) 4 mg PO HS [facility] Last Admin: 06/10/16 21:36 Dose: 4 mg Dicyclomine HCl (Bentyl) 10 mg PO Q6 PRN PRN Reason: Muscle spasm Gabapentin (Neurontin) 300 mg PO BID [facility] Last Admin: 06/10/16 17:47 Dose: 300 mg Hydroxyzine HCl (Atarax) 25 mg PO Q8 PRN PRN Reason: Anxiety Last Admin: 06/10/16 17:47 Dose: 25 mg Multivitamins (Hexavitamin) 1 tab PO DAILY [facility] Last Admin: 06/10/16 09:31 Dose: 1 tab Ondansetron HCl (Zofran Inj) 4 mg IM Q6 PRN PRN Reason: Nausea/Vomiting Last Admin: 06/08/16 02:59 Dose: 4 mg Pantoprazole Sodium (Protonix Ec Tab) 40 mg PO DAILY [facility] Last Admin: 06/10/16 09:32 Dose: 40 mg Polyethylene Glycol (Miralax) 17 gm PO DAILY [facility] Last Admin: 06/10/16 09:31 Dose: 17 gm Sodium Chloride (Cornish Baby Saline 30 Ml) 0 ml JESSY Q6 PRN PRN Reason: dry nose Last Admin: 06/10/16 21:35 Dose: 2 inh Trazodone HCl (Desyrel) 100 mg PO HS PRN PRN Reason: Insomnia Last Admin: 06/10/16 21:36 Dose: 100 mg Vitamin A (Vitamin A & D Oint Ud Foilpak) 1 ea TOP BID PRN PRN Reason: Dry skin Last Admin: 06/10/16 19:07 Dose: 1 ea - Labs Labs: 06/09/16 08:06 06/09/16 08:06 Attending/Attestation - Attestation I have personally seen and examined this patient.: Yes I have fully participated in the care of the patient.: Yes I have reviewed all pertinent clinical information, including history, physical exam and plan: Yes Notes (Text): This is late computer entry for 06/10/16. Patient seen, examined and case discussed with day-time resident. Patient seen and reports has not had a bowel movement and confirmed with nursing staff. Patient ultimately had a bowel movement later this afternoon. Medicine to sign off. Please reconsult if needed. Thank you very much. Patient seen, examined, and case discussed with day-time resident. Patient seen this morning. Patient is having flatus but has not had bowel movement. Patient's abdominal xray showing fecal retention. Patient started on Miralax today. Awaiting bowel movement. Discussed with nursing, patient has yet to have a bowel movement. Awaiting bowel movement. Patient's nausea and vomitting controlled. Patient denies further episodes. Symptoms likely related to heroin withdrawal. Will likely sign off tomorrow if patient has a bowel movement; likely opiate induced constipation (1) Vomiting Resolved No further episodes of vomitting Subtex taper Zofran 4 mg IM Q6H PRN nausea. Electrolytes WNL Monitor Lipase 72 Advanced to regular diet given patient has flatus (2) Abdominal Pain Bowel movement today Abdominal xray (06/08/16): fecal retention likely opiate releated (3) Opiate abuse, continuous Management as per detox team including: Subtex taper Catapres 0,1 mg PO Q8H PRN Bentyl 10 mg PO Q6H PRN Trazodone 50 mg PO HS PRN (4) Constipation likely opiate related Abdominal xray (06/08/16): fecal retention Miralax PO daily Had bowel movement today Stool studies no needed given patient is constipated
--- NOTE | 2016-06-10 14:30 | PCM.PYCHPN ---
Psychiatric Progress Note - Psychiatric Progress Note Patient seen today, length of contact: 16 min Patient Chief Complaint: "I am better" Problems Identified/Issues Discussed: The pt is seen, chart reviewed, case discussed with staff. The pt is compliant with medications finally and reports no side-effects. Symptoms are improving but needs more time to stabilize. Slept better, though After care discussed, support and psychoeducation given. [facility] referred Medication Change: Yes (detox changes daily) Medical Record Reviewed: Yes Mental Status Examination - Cognitive Function Orientation: Person, Place, Situation, Time Memory: Intact Attention: Poor Concentration: Poor Association: WNL Fund of Knowledge: WNL - Mood Mood: Anxious - Affect Affect: Constricted - Speech Speech: Appropriate - Formal Thought Process Formal Thought Process: No Impairment - Suicidal Ideation Suicidal Ideation: No - Homicidal Ideation Homicidal Ideation: No Goal/Treatment Plan - Goal/Treatment Plan Need for Continued Stay: Discharge may exacerbated symptoms, Severe functional impairment Progress Toward Problem(s) and Goals/Treatment Plan: Opioids: -Continue Subutex detox -As needed medications -Support and psychoeducation -Attend groups and activities -MA and CBT for abstinence -Refer to rehabilitation -Consider MAT Cocaine: -MA for abstinence -Gabapentin for withdrawal anxiety Estimated Date of D/C: 06/11/16
[2016-06-10] MEDS ORDERED: Sodium Chloride Nasal 0.65% Soln (30ml) NAS PRN (19:07)
[2016-06-10] MEDS: Vitamins A & D Oint UD Foilpak TOP PRN (19:07)
[2016-06-11 06:32] VITALS: O2SAT 98
--- NOTE | 2016-06-11 08:42 | PCM.PYCHDC ---
Mental Status Examination - Mental Status Examination Orientation: Person, Place, Situation, Time Memory: Intact Mood: Neutral Affect: Broad Speech: Appropriate Attention: WNL Concentration: Poor Association: WNL Fund of Knowledge: WNL Formal Thought Process: No Impairment Suicidal Ideation: No Current Homicidal Ideation?: No Discharge Summary - Discharge Note Reason for Hospitalization: Heroin detox Consultations:: List each consultation separately and include: 1. Reason for request. 2. Findings. 3. Follow-up Summary of Hospital Course include:: 1. Description of specific treatment plan utilized for patients during their course of treatmen. 2. Summarize the time- course for resolution of acute symptoms and/or regressed behaviors. 3. Describe issues identified and worked on during hospitalization. 4. Describe medication utilized. 5. Describe medical problems identified and treated. 6. Reassessment of suicide risk Summary of Hospital Course: The patient is seen, chart reviewed and case discussed. 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 The patient admits to using up to 40 bags of intranasal harrowing. He denies using painkillers, methadone or Suboxone. He had been to detox 4 or 5 times and rehabilitation 5 times and he sometimes goes to . He admits to using cocaine sometimes and occasionally marijuana. He denies other drugs. Last night he was started on Subutex and he had some drawing up because of [place] he was wary of taking Subutex again but nevertheless he took some. Past psych history: Denies Family psych history: Denies Medical history: Denies Course: The pt was admitted and started on treatment with psychotherapy, support, psychoeducation and medications. LA and CBT used. The pt attended groups and activities, as well as milieu therapy. All the risks and benefits of medications are discussed and the patient understood and agreed. After care discussed with the patient and he agreed to go to [facility] but reluctatntly He was unmotivated, evasive, at times entitled, had a rx to [facility] on first day ( could be precipitated wdw) and refused meds a little after that. He hid the fact that he had [employer] insurance... Nevertheless he completed detox and left. - Final Diagnosis (DSM 5) Condition upon Discharge: GOOD DSM 5: Opioid withdrawal Opioid use d/o - sever Cocaine use d/o - severe Disposition: REHAB FACILITY/REHAB UNIT Follow-up Treatment Plan: Continue below medications after discharge. Follow after care plan as discussed. - [employer] [facility] Use relapse prevention skills Return to ER or call 911 if suicidal, homicidal or symptoms relapse. Stay away from stress, alcohol and drugs. Prescriptions/Medication Reconciliation: traZODone [Desyrel] 50 mg PO HS PRN #30 tab PRN Reason: Insomnia Pantoprazole [Protonix EC Tab] 40 mg PO DAILY #30 ect - Smoking Cessation Smoking Cessation Medication prescribed: No - Antipsychotic Medications Pt discharged on 2 or more routine antipsychotic medications: No
[2016-06-11] MEDS ORDERED: Buprenorphine Hydrochloride 2 mg SL ONE (09:00)
[2016-06-11 09:10] VITALS: BP 115/69; PULSE 83; RESP 20; TEMP 97.6
[2016-06-11] MEDS: Pantoprazole 40 mg EC Tab PO SCH (09:34)
[2016-06-11] MEDS: Multiple Vitamins Tab PO SCH (09:34)
[2016-06-11] MEDS: Vitamins A & D Oint UD Foilpak TOP PRN (09:42)
[2016-06-11] MEDS: POLYETHYLENE GLYCOL 3350 17 GM/Dose PACKET PO SCH (09:42)
== END 2016-06-11 11:45 | DRG 895 ==
LOC: C.ER 17:45 → C.9E 18:16 → C.7D 21:38
PROVIDERS: ADMIT Psychiatry & Neurology Psychiatry; ATTEND Psychiatry & Neurology Psychiatry
PROC: HZ2ZZZZ Detoxification Services for Substance Abuse Treatment (ICD-10-PCS; principal; 2016-06-08)
PROC: HZ46ZZZ Group Counseling for Substance Abuse Treatment, Psychoeducation (ICD-10-PCS; 2016-06-08)
PROC: HZ32ZZZ Individual Counseling for Substance Abuse Treatment, Cognitive-Behavioral (ICD-10-PCS; 2016-06-08)
PROC: HZ36ZZZ Individual Counseling for Substance Abuse Treatment, Psychoeducation (ICD-10-PCS; 2016-06-08)
PROC: HZ59ZZZ Individual Psychotherapy for Substance Abuse Treatment, Supportive (ICD-10-PCS; 2016-06-08)
DX: F11.23 Opioid dependence with withdrawal (principal); F12.90 Cannabis use, unspecified, uncomplicated; F14.90 Cocaine use, unspecified, uncomplicated; G47.00 Insomnia, unspecified; F41.9 Anxiety disorder, unspecified; F17.210 Nicotine dependence, cigarettes, uncomplicated; K59.00 Constipation, unspecified; T40.4X5A Adverse effect of other synthetic narcotics, initial encounter; R11.10 Vomiting, unspecified

== ENCOUNTER 2016-07-17 09:44 | Emergency (ER) | payer OTHER ==
[2016-07-17 09:47] VITALS: BP 142/76; PULSE 75; RESP 20; TEMP 98.2; O2SAT 100
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
--- NOTE | 2016-07-17 12:16 | RAD ---
PROCEDURE: Right Knee Radiographs. HISTORY: Right knee pain and swelling 3- 4 months duration. COMPARISON: None. FINDINGS: BONES: Normal. No fracture. JOINTS: Normal. No osteoarthritis. JOINT EFFUSION: None. OTHER FINDINGS: None. IMPRESSION: No significant or acute findings to account for/ related to the clinical presentation.
== END 2016-07-17 10:52 | disposition home or self-care (01) ==
LOC: C.ER 09:44
DX: S83.91XA Sprain of unspecified site of right knee, initial encounter (principal); V89.2XXA Person injured in unspecified motor-vehicle accident, traffic, initial encounter